=== PATIENT | female | born 1975 | race Caucasian/White ===

== ENCOUNTER → 2016-06-02 | Outpatient (CLI) | payer OTHER ==
[~2016-06-02] MED LIST: ACID1TAB7 PO; BIRTH CONTROL PO; CLIN300C93 PO; PRED5TAB PO; TRAM50TA2 PO
== END | disposition home or self-care (01) ==
LOC: CFH 14:51
PROVIDERS: ATTEND Clinical Nurse Specialist Women's Health
DX: Z12.31 Encounter for screening mammogram for malignant neoplasm of breast (principal)
CPT/HCPCS: G0202

== ENCOUNTER 2016-08-04 16:12 | Emergency (ER) | payer OTHER ==
[~2016-08-04] VITALS: Ht 177.8 cm; Wt 71.8 kg
[2016-08-04] MEDS ORDERED: ONDANSETRON 2MG/ML, 2ML IVPush ONE (17:00)
[2016-08-04] MEDS ORDERED: SODIUM CHLORIDE 0.9% 1,000ML IVBOLUS ONE (17:00)
[2016-08-04] MEDS ORDERED: SODIUM CHLORIDE FLUSH 10ML SYR IVF ONE (17:00)
[2016-08-04] MEDS ORDERED: ONDANSETRON 2MG/ML, 2ML ONE (17:10)
[2016-08-04] MEDS ORDERED: MORPHINE SULFATE 4 MG/ML, 1ML ONE ×2 (17:10→19:16)
[2016-08-04 17:14] LABS: ASPARTATE AMINO TRANSFERASE 24 U/L (15-37); BLOOD UREA NITROGEN 9 mg/dL (7-18)
[2016-08-04] MEDS: MORPHINE SULFATE 4 MG/ML, 1ML IVPush PRN ×2 (17:42→19:20)
[2016-08-04 19:25] VITALS: BP 117/77
[2016-08-04] MEDS ORDERED: CIPROFLOXACIN 500 MG TABLET PO ONE (19:30)
[2016-08-04] MEDS ORDERED: metroNIDAZOLE 500 MG TABLET PO ONE (19:30)
[2016-08-04] MEDS ORDERED: CIPROFLOXACIN 500 MG TABLET ONE (19:50)
[2016-08-04] MEDS ORDERED: metroNIDAZOLE 500 MG TABLET ONE (19:51)
== END 2016-08-04 20:04 | disposition home or self-care (01) ==
LOC: ED 19:30
DX: R19.7 Diarrhea, unspecified (principal); K62.89 Other specified diseases of anus and rectum
CPT/HCPCS: 36415; 80053; 81001; 83690; 84703; 85025; 87086; 96361; 96374; 96375; 96376; 99284; J2405; J7030